=== PATIENT | female | born 1955 | race Caucasian/White ===

== ENCOUNTER 2017-04-18 14:13 | Emergency (ER) | payer MEDICARE, OTHER ==
[~2017-04-18] VITALS: Ht 162.6 cm; Wt 128.6 kg
[~2017-04-18 14:13] MED LIST: /ESOM40CA OR; /PRAV20TA; /WARF25TA; ACET65TA; ALBU17IN2 INH; AMOX875T2 PO; ASPI81TA24 PO; ASPI81TA45; ATEN50TA2 PO; BREO1INH INH; COUM2.5T17 PO; HYDR-3713 PO; KEFL500C; LEVO150T7 PO; LEVO200T31 PO; LISI20TA PO; LISI20TA5; NEXI1CAP4 PO; OXYC10TA56; PERC5TAB12 PO; PERC5TAB8; SYNT88TA PO; VICO5TAB; ZEST20TA4; ZOFR20TA PO; ZOLO100T PO
[2017-04-18] MEDS ORDERED: ONDANSETRON 4MG/2ML VIAL (J2405) IV ONE (15:45)
[2017-04-18] MEDS ORDERED: MORPHINE 2 MG/ML 1ML SYRINGE IV PRN (15:45)
[2017-04-18] MEDS ORDERED: NS 1,000 ML IV ONE (15:45)
[2017-04-18 16:54] LABS: BASO % 0.4 % (0.0-1.0); EOS # 0.2 K/mm3 (0.0-0.50); EOS % 1.8 % (0.0-3.0); LARGE UNSTAINED CELL # 0.1 K/mm3 (0.0-0.4); MEAN CORPUSCULAR HEMOGLOBIN 30.2 pg (27.0-33.0); MEAN CORPUSCULAR HGB CONC 34.3 g/dl (32.0-36.5); MEAN CORPUSCULAR VOLUME 88.1 fl (80.0-96.0); MONO # 0.4 K/mm3 (0.0-0.8); MONO % 4.6 % (0.0-5.0); NEUTROPHILS % 81.2 % (36.0-66.0); PLATELET COUNT, AUTOMATED 240 k/mm3 (150-450); RED CELL DISTRIBUTION WIDTH 14.3 % (11.5-14.5); WHITE BLOOD COUNT 8.6 K/mm3 (4.0-10.0)
[2017-04-18 17:05] LABS: ALBUMIN 3.6 GM/DL (3.2-5.2); ALBUMIN/GLOBULIN RATIO 0.78 (1.00-1.93); ALKALINE PHOSPHATASE 109 U/L (45-117); ALT/SGPT 20 U/L (12-78); ANION GAP 8 MEQ/L (8-16); AST/SGOT 21 U/L (15-37); BILIRUBIN,DIRECT < 0.1 MG/DL (0.0-0.2); BILIRUBIN,TOTAL 0.4 MG/DL (0.2-1.0); BLOOD UREA NITROGEN 15 MG/DL (7-18); CALCIUM LEVEL 8.9 MG/DL (8.5-10.1); CARBON DIOXIDE LEVEL 28 MEQ/L (21-32); CHLORIDE LEVEL 106 MEQ/L (98-107); GLOMERULAR FILTRATION RATE > 60.0 (>51); GLUCOSE, FASTING 87 MG/DL (70-105); POTASSIUM SERUM 3.7 MEQ/L (3.5-5.1); SODIUM LEVEL 142 MEQ/L (136-145); TOTAL PROTEIN 8.2 GM/DL (6.4-8.2)
[2017-04-18] MEDS ORDERED: ISOVUE-370 76% 100ML VIAL (Q9967) As Ordered ONE (17:21)
--- NOTE | 2017-04-18 17:54 | REP ---
Clinical: Left lower quadrant pain. Technique: Axial contrast enhanced images from the lung bases to the pubic symphysis using 100 ml Isovue 370 intravenous contrast material with coronal and sagittal re-formations. Comparison: 10/29/2015. Findings: Focal mural thickening and pericolonic stranding in the setting of diverticula is consistent with acute diverticulitis at the distal descending colon (images 97 - 112). No associated bowel obstruction, perforation, or drainable collection/abscess. Liver, spleen, pancreas, and bilateral adrenal glands and kidneys are normal. Cholelithiasis noted without CT evidence for acute cholecystitis. Pelvis demonstrates normal bladder and age-appropriate uterus/adnexa. No ascites. No free air. No adenopathy. Evidence for prior appendectomy in the right lower quadrant. Musculoskeletal structures demonstrate age-related changes without focal osseous abnormality. Impression: 1. Acute diverticulitis involving the distal descending colon. 2. Cholelithiasis without acute cholecystitis. Signed by Willy Sweet MD 04/18/2017 05:46 P
[2017-04-18] MEDS ORDERED: NORCOTAB PO (19:42)
[2017-04-18] MEDS ORDERED: ZOFR4TAB3 PO (19:42)
[2017-04-18] MEDS ORDERED: CIPR-249 PO (19:42)
[2017-04-18] MEDS ORDERED: FLAG500T PO (19:42)
[2017-04-18 19:54] VITALS: BP 135/76
[2017-04-18] MEDS ORDERED: CIPROFLOXACIN 500 MG TAB PO ONE (20:00)
[2017-04-18] MEDS ORDERED: metroNIDAZOLE (FLAGYL) 500 MG TAB PO ONE (20:00)
== END 2017-04-18 20:04 | disposition home or self-care (01) ==
LOC: M ED 14:13
DX: K57.30 Diverticulosis of large intestine without perforation or abscess without bleeding (principal); I10 Essential (primary) hypertension; K27.9 Peptic ulcer, site unspecified, unspecified as acute or chronic, without hemorrhage or perforation; K80.20 Calculus of gallbladder without cholecystitis without obstruction; K21.9 Gastro-esophageal reflux disease without esophagitis; F32.9 Major depressive disorder, single episode, unspecified; Z86.73 Personal history of transient ischemic attack (TIA), and cerebral infarction without residual deficits; J45.909 Unspecified asthma, uncomplicated; E03.9 Hypothyroidism, unspecified; G89.29 Other chronic pain; M54.9 Dorsalgia, unspecified; Z87.891 Personal history of nicotine dependence; Z82.49 Family history of ischemic heart disease and other diseases of the circulatory system; R63.5 Abnormal weight gain; Z79.899 Other long term (current) drug therapy; Z88.6 Allergy status to analgesic agent; Z91.010 Allergy to peanuts
CPT/HCPCS: 74177; 80048; 80076; 81001; 83690; 85025; 96361; 96374; 96375; 99283; J2405; Q9967

== ENCOUNTER 2017-07-12 07:59 | Day surgery (SDC) | payer MEDICARE ==
[~2017-07-12] VITALS: Ht 162.6 cm; Wt 129.7 kg
[~2017-07-12 07:59] MED LIST changes: +ASPI1TAB PO; +CIPR-249 PO; +FLAG500T PO; +NAPR500T3 PO; +NORCOTAB PO; +ZOFR4TAB3 PO
[2017-07-12] MEDS ORDERED: NS 1,000 ML IV ONE (08:15)
[2017-07-12] MEDS ORDERED: PROPOFOL 200 MG/20 ML VIAL As Ordered ONE (08:33)
[2017-07-12] MEDS ORDERED: LIDOCAINE 2% INJ 100 MG/5 ML SDV (FOR ANES.) As Ordered ONE (08:34)
--- NOTE | 2017-07-12 09:56 | ROOR ---
Patient Name: Malena King Procedure Date: 07/12/2017 9:09 AM Date of : 1955 Age: 61 Room: [facility] Gender: Female Note Status: Finalized Procedure: Colonoscopy Indications: Abnormal CT of the GI tract Providers: Chaparro Paul MD Referring MD: Roula Burr Requesting Provider: Medicines: Monitored Anesthesia Care Complications: No immediate complications. Procedure: Pre-Anesthesia Assessment: - Prior to the procedure, a History and Physical was performed, and patient medications and allergies were reviewed. The patient is competent. The risks and benefits of the procedure and the sedation options and risks were discussed with the patient. All questions were answered and informed consent was obtained. Patient identification and proposed procedure were verified by the physician, the nurse and the anesthesiologist in the procedure room. Mental Status Examination: alert and oriented. Airway Examination: normal oropharyngeal airway and neck mobility. Respiratory Examination: clear to auscultation. CV Examination: normal. Prophylactic Antibiotics: The patient does not require prophylactic antibiotics. Prior Anticoagulants: The patient has taken no previous anticoagulant or antiplatelet agents. ASA Grade Assessment: III - A patient with severe systemic disease. After reviewing the risks and benefits, the patient was deemed in satisfactory condition to undergo the procedure. The anesthesia plan was to use monitored anesthesia care (MAC). Immediately prior to administration of medications, the patient was re-assessed for adequacy to receive sedatives. The heart rate, respiratory rate, oxygen saturations, blood pressure, adequacy of pulmonary ventilation, and response to care were monitored throughout the procedure. The physical status of the patient was re-assessed after the procedure. The Colonoscope was introduced through the anus and advanced to the terminal ileum, with identification of the appendiceal orifice and IC valve. The colonoscopy was performed without difficulty. The patient tolerated the procedure well. The quality of the bowel preparation was good. The terminal ileum, ileocecal valve, appendiceal orifice, and rectum were photographed. Scope insertion time was 3 minutes. Scope withdrawal time was 9 minutes. The total duration of the procedure was 12 minutes. Findings: The perianal and digital rectal examinations were normal. The terminal ileum appeared normal. A 3 mm polyp was found in the descending colon. The polyp was sessile. The polyp was removed with a cold biopsy forceps. Resection and retrieval were complete. Verification of patient identification for the specimen was done by the physician and nurse using the patient's name, date and medical record number. Estimated blood loss was minimal. Multiple small and large-mouthed diverticula were found from sigmoid to ascending colon. There was no evidence of diverticular bleeding. External and internal hemorrhoids were found during retroflexion. The hemorrhoids were medium-sized. Impression: - The examined portion of the ileum was normal. - One 3 mm polyp in the descending colon, removed with a cold biopsy forceps. Resected and retrieved. - Moderate diverticulosis from sigmoid to ascending colon. There was no evidence of diverticular bleeding. - External and internal hemorrhoids. Recommendation: - Patient has a contact number available for emergencies. The signs and symptoms of potential delayed complications were discussed with the patient. Return to normal activities tomorrow. Written discharge instructions were provided to the patient. - High fiber diet. - Continue present medications. - Await pathology results. - Repeat colonoscopy in 5-10 years for surveillance based on pathology results. - Return to GI clinic as previously scheduled on 07/19/2017 at 10:00 AM. - Return to primary care physician. Chaparro Paul MD Chaparro Paul MD 07/12/2017 9:55:53 AM This report has been signed electronically. Number of Addenda: 0 Note Initiated On: 07/12/2017 9:09 AM Estimated Blood Loss: Estimated blood loss was minimal.
[2017-07-12 10:28] VITALS: BP 103/60
== END 2017-07-12 10:25 | disposition home or self-care (01) ==
LOC: M OPP 07:59
PROVIDERS: ATTEND Internal Medicine Gastroenterology
DX: R93.3 Abnormal findings on diagnostic imaging of other parts of digestive tract (principal); D12.4 Benign neoplasm of descending colon; K57.30 Diverticulosis of large intestine without perforation or abscess without bleeding; K64.8 Other hemorrhoids; K64.4 Residual hemorrhoidal skin tags; I12.9 Hypertensive chronic kidney disease with stage 1 through stage 4 chronic kidney disease, or unspecified chronic kidney disease; E03.9 Hypothyroidism, unspecified; K92.2 Gastrointestinal hemorrhage, unspecified; R12 Heartburn; K21.9 Gastro-esophageal reflux disease without esophagitis; R06.02 Shortness of breath; M19.90 Unspecified osteoarthritis, unspecified site; Z78.0 Asymptomatic menopausal state; J45.909 Unspecified asthma, uncomplicated; G47.8 Other sleep disorders; F32.9 Major depressive disorder, single episode, unspecified; R06.83 Snoring; N18.9 Chronic kidney disease, unspecified; Z96.651 Presence of right artificial knee joint; Z88.8 Allergy status to other drugs, medicaments and biological substances; Z91.010 Allergy to peanuts; Z79.82 Long term (current) use of aspirin; Z79.899 Other long term (current) drug therapy; Z80.3 Family history of malignant neoplasm of breast; Z80.1 Family history of malignant neoplasm of trachea, bronchus and lung; Z80.0 Family history of malignant neoplasm of digestive organs

== ENCOUNTER → 2018-06-17 | Outpatient (CLI) | payer MEDICARE | LOC: M RAD 07:33 | DX: M25.561 Pain in right knee (principal) | CPT/HCPCS: 78315 ==

== ENCOUNTER 2019-06-27 09:55 | Day surgery (SDC) | payer MEDICARE ==
[~2019-06-27] VITALS: Ht 162.6 cm; Wt 73.5 kg
[~2019-06-27 09:55] MED LIST changes: -/ESOM40CA OR; -/PRAV20TA; -/WARF25TA; -ASPI1TAB PO; +ASPI81TA26 PO; +COUM1TAB18; +HYDR-3715 PO; -LISI20TA PO; +LISI20TA19 PO; +NAPR-885 PO; -NAPR500T3 PO; +NEXI1CAP3 OR; -NORCOTAB PO; +NS 1,000 ML IV ONE; +PRAV1TAB39; -ZOFR20TA PO; +ZOFR4TAB14 PO; +ZOFR4TAB16 PO; -ZOFR4TAB3 PO
[2019-06-27] MEDS ORDERED: LIDOCAINE 2% INJ 100 MG/5 ML SDV (FOR ANES.) As Ordered ONE (12:28)
[2019-06-27] MEDS ORDERED: PROPOFOL 200 MG/20 ML VIAL As Ordered ONE (12:28)
[2019-06-27] MEDS ORDERED: CETACAINE SPRAY 5GM As Ordered ONE (12:28)
[2019-06-27 13:00] VITALS: BP 145/67
--- NOTE | 2019-06-27 13:34 | ROOR ---
Patient Name: Malena King Procedure Date: 06/27/2019 12:23 PM Date of : 1955 Age: 63 Room: [facility] Gender: Female Note Status: Finalized Procedure: Upper GI endoscopy Indications: Dysphagia Providers: Chaparro Paul MD Referring MD: Roula Greene ([place]) LOC[employer]PERINTENDENT Requesting Provider: Medicines: Monitored Anesthesia Care Complications: No immediate complications. Procedure: Pre-Anesthesia Assessment: - Prior to the procedure, a History and Physical was performed, and patient medications and allergies were reviewed. The patient is competent. The risks and benefits of the procedure and the sedation options and risks were discussed with the patient. All questions were answered and informed consent was obtained. Patient identification and proposed procedure were verified by the physician, the nurse and the anesthesiologist in the procedure room. Mental Status Examination: alert and oriented. Airway Examination: normal oropharyngeal airway and neck mobility. Respiratory Examination: clear to auscultation. CV Examination: normal. Prophylactic Antibiotics: The patient does not require prophylactic antibiotics. Prior Anticoagulants: The patient has taken no previous anticoagulant or antiplatelet agents. ASA Grade Assessment: II - A patient with mild systemic disease. After reviewing the risks and benefits, the patient was deemed in satisfactory condition to undergo the procedure. The anesthesia plan was to use monitored anesthesia care (MAC). Immediately prior to administration of medications, the patient was re-assessed for adequacy to receive sedatives. The heart rate, respiratory rate, oxygen saturations, blood pressure, adequacy of pulmonary ventilation, and response to care were monitored throughout the procedure. The physical status of the patient was re-assessed after the procedure. The Endoscope was introduced through the mouth, and advanced to the second part of duodenum. The upper GI endoscopy was accomplished without difficulty. The patient tolerated the procedure well. Findings: LA Grade A (one or more mucosal breaks less than 5 mm, not extending between tops of 2 mucosal folds) esophagitis with no bleeding was found in the distal esophagus. Biopsies were obtained from the proximal and distal esophagus with cold forceps for histology of suspected eosinophilic esophagitis. No endoscopic abnormality was evident in the esophagus to explain the patient's complaint of dysphagia. Scattered mild inflammation characterized by erythema, friability and granularity was found in the gastric antrum. Biopsies were taken with a cold forceps for Helicobacter pylori testing. Verification of patient identification for the specimen was done by the physician and nurse using the patient's name, date and medical record number. Estimated blood loss was minimal. The duodenal bulb and second portion of the duodenum were normal. Impression: - LA Grade A reflux esophagitis. Biopsied. - No endoscopic esophageal abnormality to explain patient's dysphagia. - Gastritis. Biopsied. - Normal duodenal bulb and second portion of the duodenum. Recommendation: - Patient has a contact number available for emergencies. The signs and symptoms of potential delayed complications were discussed with the patient. Return to normal activities tomorrow. Written discharge instructions were provided to the patient. - High fiber diet. - Continue present medications. - Await pathology results. - Follow an antireflux regimen. - Return to GI clinic in [facility] (address [address], [address], [place] [address]) in 4 -- 6 weeks. Please call GI clinic @ [phone] for apppointment date and time. - Return to primary care physician. Chaparro Paul MD Chaparro Paul MD 06/27/2019 1:33:59 PM Electronically signed by Chaparro Paul MD Number of Addenda: 0 Note Initiated On: 06/27/2019 12:23 PM Estimated Blood Loss: Estimated blood loss was minimal.
== END 2019-06-27 13:41 | disposition home or self-care (01) ==
LOC: M OPP 09:55
PROVIDERS: ATTEND Internal Medicine Gastroenterology
DX: K21.0 Gastro-esophageal reflux disease with esophagitis (principal); R13.10 Dysphagia, unspecified; K29.70 Gastritis, unspecified, without bleeding; G47.30 Sleep apnea, unspecified; Z86.73 Personal history of transient ischemic attack (TIA), and cerebral infarction without residual deficits; Z79.82 Long term (current) use of aspirin; Z79.899 Other long term (current) drug therapy; Z88.6 Allergy status to analgesic agent; Z91.018 Allergy to other foods

== ENCOUNTER → 2021-01-09 | Outpatient (CLI) | payer MEDICARE ==
[~2021-01-09] MED LIST changes: -LISI20TA19 PO; +LISI20TA35 PO; -NS 1,000 ML IV ONE
--- NOTE | 2021-01-09 14:22 | PFTRPT ---
Height: 61.50 Inches Weight: 302.00 Lbs BSA: 2.26 Diagnosis: R06.00 DATE: 01/09/2021 ORDERED BY: [place] Morgan Pre and post bronchodilator studies have excellent technical quality. Forced vital capacity is reduced. FEV1 is in proportion. Obstructive index is therefore normal. Expiratory limit of the flow-volume loop does suggest some nonspecific limitation. No significant bronchodilator response is identified. Total lung capacity is normal. Residual volume raises the question of air trapping. Diffusing capacity is reduced, but is appropriate for alveolar volume. Hemoglobin is acceptable at 13.2. Airway resistance and conductance are normal. IMPRESSION: Nonspecific flow rate limitation. Please correlate clinically. MTDD
--- NOTE | 2021-01-09 14:56 | REPVR ---
PROCEDURE INFORMATION: Exam: CT Chest Without Contrast; Diagnostic Exam date and time: 01/09/2021 1:41 PM Age: 65 years old Clinical indication: Abnormal findings; Abnormal radiologic exam of lung or chest; Additional info: Abnormal finding of lung - PFT 1st TECHNIQUE: Imaging protocol: Diagnostic computed tomography of the chest without contrast. Coronal and sagittal reformats were created and reviewed. 3D rendering (Not supervised by radiologist): MIP and/or 3D reconstructed images were created by the technologist. Radiation optimization: All CT scans at this facility use at least one of these dose optimization techniques: automated exposure control; mA and/or kV adjustment per patient size (includes targeted exams where dose is matched to clinical indication); or iterative reconstruction. COMPARISON: 1. CT ABD/PEL W/IV CONTRAST ONLY 04/18/2017 5:29:02 PM 2. CR Chest, 2 view PA, Lat 06/04/2016 11:57 AM FINDINGS: Lungs: The trachea is unremarkable. Complete right middle lobe atelectasis. Large right lower lobe atelectasis with near complete atelectasis of the right lower lobe basilar segments. Minimal scarring/subsegmental atelectasis of the lingula and left lower lobe base. No mass, suspicious nodule, or consolidation. Very mild mosaic attenuation of the bilateral upper lobes probably representing air trapping. Pleural spaces: No pleural effusion, mass or calcification. No pneumothorax. Heart: Coronary arterial atherosclerotic calcifications are present. Heart size is within normal limits. No pericardial effusion. Mediastinal space: Small, sliding-type esophageal hiatal hernia. No mediastinal mass. Pulmonary arteries: The main pulmonary arterial trunk is not enlarged. Aorta: Moderate aortic atherosclerosis. No thoracic aortic aneurysm. Lymph nodes: No adenopathy by CT size criteria. Diaphragm: Largely elevated right hemidiaphragm. Gallbladder and bile ducts: Gallstones are present within the gallbladder. Bones/joints: Degenerative spine disease. Soft tissues: Unremarkable. IMPRESSION: 1. Largely elevated right hemidiaphragm. There is associated large right lower lobe atelectasis and complete right middle lobe atelectasis. Consider fluoroscopic sniff test to assess for right diaphragmatic paralysis. 2. Atherosclerosis. Coronary artery disease. Electronically signed by: Luis Alfredo Beatty On 01/09/2021 14:56:24 PM
== END ==
LOC: M CARPUL 13:27
PROVIDERS: ATTEND Physician Assistant
DX: R91.8 Other nonspecific abnormal finding of lung field (principal); I25.10 Atherosclerotic heart disease of native coronary artery without angina pectoris

== ENCOUNTER → 2021-03-03 | Outpatient (CLI) | payer MEDICARE ==
--- NOTE | 2021-03-03 17:30 | REP ---
INDICATION: DISORDER OF DIAPHRAGM ABN FINDINGS LUNG FIELD. COMPARISON: None. TECHNIQUE: The procedure was performed under the direct supervision of Dr. Johnson. The images were reviewed with Dr. Johnson. The patient was instructed to take 2 deep breaths and then to sniff. Images demonstrate elevation of the right hemidiaphragm. There is significantly decreased excursion of the right hemidiaphragm. FINDINGS: There is elevation of the right hemidiaphragm. There is significantly decreased excursion of the right hemidiaphragm. IMPRESSION: There is elevation of the right hemidiaphragm. There is significantly decreased excursion of the right hemidiaphragm. <Electronically signed by Rashel Felder > 03/03/21 [id number] <Electronically signed by Tom Johnson > 03/03/21 [id number]
== END ==
LOC: M RAD 10:03
PROVIDERS: ATTEND Physician Assistant
DX: R91.8 Other nonspecific abnormal finding of lung field (principal); J98.6 Disorders of diaphragm

== ENCOUNTER → 2021-04-22 | Outpatient (CLI) | payer MEDICARE ==
--- NOTE | 2021-04-22 09:50 | REP ---
INDICATION: DIARRHEA H/O GALLSTONES. COMPARISON: None. TECHNIQUE/RADIOTRACER AND DOSE: 6.6 mCi of Technetium-99m mebrofenin was injected and sequential anterior images are acquired. 65 minutes after the mebrofenin injection, the patient consumed 8 ounces Ensure and an additional 60 minutes of imaging was acquired. Regions of interest are plotted around the gallbladder. FINDINGS: The initial hepatocellular parenchymal uptake phase is normal and homogeneous. Intra- and extra-hepatic bile ducts are labeled by the 15-minute image. The gallbladder is first labeled on the 40-minute image. There is normal washout from the liver parenchyma into the gallbladder and small intestine on subsequent images. The gallbladder ejection fraction is 60%. Values greater than 35% are considered normal with this technique. IMPRESSION: Normal hepatobiliary scan and normal gallbladder ejection fraction. <Electronically signed by Leonidas Gallagher > 04/22/21 0947
== END ==
LOC: M RAD 06:58
PROVIDERS: ATTEND Physician Assistant
DX: K52.9 Noninfective gastroenteritis and colitis, unspecified (principal); Z87.19 Personal history of other diseases of the digestive system
CPT/HCPCS: 78227; A9537

== ENCOUNTER 2024-07-26 09:24 | Day surgery (SDC) | payer MEDICARE, MEDICAID ==
[~2024-07-26] VITALS: Ht 162.6 cm; Wt 121.9 kg
[~2024-07-26 09:24] MED LIST changes: +ALBU2.5V10 INH; +ATOR1TAB21 PO; +BUDE9TAB4 PO; +HYDR12CA PO; +LISI20TA33 PO; +LISI5TAB11 PO; +ONDA-83 PO; +OXYB-54 PO; +SERT25TA21 PO; +SYNT175T2 PO; +TREL1AER IN; +VENTAER INH
[2024-07-26] MEDS: LR 500 ML IV SCH (09:45)
[2024-07-26] MEDS ORDERED: LIDOCAINE 2% 100MG/5ML SDV (FOR ANES.) As Ordered ONE (09:58)
[2024-07-26] MEDS ORDERED: SUGAMMADEX SODIUM 500 MG/5 ML VIAL (BRIDION) As Ordered ONE (09:58)
[2024-07-26] MEDS ORDERED: propofoL 200 MG/20 ML VIAL As Ordered ONE (09:58)
[2024-07-26] MEDS ORDERED: ONDANSETRON 4MG 2ML VIAL As Ordered ONE (09:58)
[2024-07-26] MEDS ORDERED: ROCURONIUM BROMIDE 50MG/5ML VIAL As Ordered ONE (09:59)
[2024-07-26] MEDS ORDERED: MIDAZOLAM INJ 2MG/2ML VIAL As Ordered ONE (10:02)
[2024-07-26] MEDS ORDERED: fentaNYL 100 MCG/2 ML INJECTION As Ordered ONE (10:02)
[2024-07-26] MEDS: NS (Normal Saline) 0.9% 1,000 ML IV SCH (10:30)
[2024-07-26] MEDS ORDERED: ACETAMINOPHEN 1000MG/100ML IV BAG As Ordered ONE (11:35)
[2024-07-26] MEDS: CETACAINE SPRAY 5GM As Ordered ONE (11:46)
[2024-07-26] MEDS ORDERED: ONDANSETRON 4MG 2ML VIAL IV PRN (12:05)
[2024-07-26] MEDS ORDERED: fentaNYL 100 MCG/2 ML INJECTION IV PRN (12:05)
[2024-07-26] MEDS: THROMBIN 5,000 UNITS VIAL As Ordered ONE (12:06)
[2024-07-26] MEDS: EPINEPHrine 1MG/10ML SYRINGE 1.5IN As Ordered ONE (12:06)
[2024-07-26 12:45] VITALS: BP 143/67; TEMP 97.6; O2SAT 98
== END 2024-07-26 13:25 | disposition home or self-care (01) ==
LOC: M SDC 09:24
PROVIDERS: ATTEND Internal Medicine Pulmonary Disease
DX: R59.0 Localized enlarged lymph nodes (principal); J44.9 Chronic obstructive pulmonary disease, unspecified; J98.6 Disorders of diaphragm; I10 Essential (primary) hypertension; E11.9 Type 2 diabetes mellitus without complications; E78.5 Hyperlipidemia, unspecified; G47.33 Obstructive sleep apnea (adult) (pediatric); J30.9 Allergic rhinitis, unspecified; E03.9 Hypothyroidism, unspecified; F41.9 Anxiety disorder, unspecified; F32.A Depression, unspecified; K21.9 Gastro-esophageal reflux disease without esophagitis; Z86.73 Personal history of transient ischemic attack (TIA), and cerebral infarction without residual deficits; Z79.82 Long term (current) use of aspirin; Z79.899 Other long term (current) drug therapy; Z88.8 Allergy status to other drugs, medicaments and biological substances; Z91.010 Allergy to peanuts
CPT/HCPCS: 31652; 71045; 87070; 87102; 88173; 88305; J0131; J1100; J2250; J2405; J3010; S2900